=== PATIENT | female | born 1995 | race Caucasian/White ===

== ENCOUNTER 2016-10-25 14:42 | Emergency (ER) | payer OTHER ==
[~2016-10-25] VITALS: Ht 157.4 cm; Wt 56.7 kg
== END 2016-10-25 16:28 | disposition home or self-care (01) ==
LOC: ED 14:42
DX: S60.041A Contusion of right ring finger without damage to nail, initial encounter (principal); X58.XXXA Exposure to other specified factors, initial encounter; Y93.89 Activity, other specified; Y92.89 Other specified places as the place of occurrence of the external cause; Y99.8 Other external cause status

== ENCOUNTER → 2018-08-22 | Outpatient (CLI) | payer OTHER | END | disposition home or self-care (01) | LOC: RAD 11:01 | DX: M22.2X1 Patellofemoral disorders, right knee (principal) ==

== ENCOUNTER 2019-01-14 12:58 | Emergency (ER) | payer OTHER ==
[~2019-01-14] VITALS: Ht 160 cm; Wt 63.5 kg
[2019-01-14] MEDS ORDERED: SPRINTEC 35 MCG1 TA1 PO (13:07)
[2019-01-14] MEDS ORDERED: Motrin,Rufen800 MG PO (14:52)
== END 2019-01-14 15:15 | disposition home or self-care (01) ==
LOC: ED 12:58
DX: S16.1XXA Strain of muscle, fascia and tendon at neck level, initial encounter (principal); S00.93XA Contusion of unspecified part of head, initial encounter; M54.5 Low back pain; R68.84 Jaw pain; Z79.899 Other long term (current) drug therapy; V89.2XXA Person injured in unspecified motor-vehicle accident, traffic, initial encounter; Y93.89 Activity, other specified; Y92.488 Other paved roadways as the place of occurrence of the external cause; Y99.8 Other external cause status